=== PATIENT | female | born 1955 | race African-American/Black ===

== ENCOUNTER 2016-05-20 17:53 | Inpatient (IN) | END 2016-05-26 16:20 | disposition home or self-care (01) | DRG 690 | DX: N39.0 Urinary tract infection, site not specified (principal); B96.20 Unspecified Escherichia coli [E. coli] as the cause of diseases classified elsewhere; B96.4 Proteus (mirabilis) (morganii) as the cause of diseases classified elsewhere; E87.0 Hyperosmolality and hypernatremia; E87.8 Other disorders of electrolyte and fluid balance, not elsewhere classified; E87.1 Hypo-osmolality and hyponatremia; R13.10 Dysphagia, unspecified; Z93.1 Gastrostomy status; E86.0 Dehydration; D64.9 Anemia, unspecified; I10 Essential (primary) hypertension; E87.6 Hypokalemia; Z86.73 Personal history of transient ischemic attack (TIA), and cerebral infarction without residual deficits; F41.9 Anxiety disorder, unspecified; F32.9 Major depressive disorder, single episode, unspecified ==

== ENCOUNTER 2016-08-27 11:58 | Emergency (ER) | payer OTHER ==
[~2016-08-27] VITALS: Wt 77.0 kg
[~2016-08-27 11:58] MED LIST: AMLO-145 PO; ASPI-664 PO; CHLO25TA13 PO; DILT90TA PO; DIPY50TA PO; DOCU-216 PO; DULO60CA59 PO; FOLI-49 PO; GABA600T PO; TRAZ150T65 PO
--- NOTE | 2016-08-27 14:54 | RADRPT ---
PROCEDURE: XR right knee. CLINICAL INDICATION: Knee pain TECHNIQUE: AP, tunnel and lateral views are available for review. COMPARISON: None available FINDINGS: There is severe diffuse osteopenia. There is an acute comminuted transverse fracture involving the distal femur. No osseous lesions are identified. The joints are unremarkable. The soft tissues ar e unremarkable. There is a large joint effusion. There is extensive arterial vascular calcification. IMPRESSION: Diffuse osteopenia. Acute comminuted transverse fracture involving the distal femur Large joint effusion RPTAT: [facility] Case discussed with Ema Echeverria .Khoi Clark MD, MD Date Time Electronically viewed and signed by .Khoi Clark MD, on 08/27/2016 14:54 .B/
[2016-08-27] MEDS ORDERED: ACET500C5 PO (15:50)
[2016-08-27 15:57] VITALS: BP 122/65; PULSE 88; RESP 16; TEMP 98.2
--- NOTE | 2016-08-27 17:09 | ERD ---
ER Documentation Chief Complaint Date/Time DATE: 08/27/16 TIME: 17:00 Chief Complaint RIGHT KNEE PAIN S/P FALL FROM WHEELCHAIR, SWELLING NOTED HPI 61-year-old female patient with a past medical history of a previous stroke who has chronic right sided weakness, hypertension presents to the ED brought in by complaining of a right knee injury that occurred 2 weeks ago. He states that patient accidentally fell onto her right knee as she was trying to get out of her wheelchair. Patient's brought patient to follow-up with Dr. Lozoya and they ordered a right knee x-ray. Patient was referred to , orthopedic physician for further evaluation and treatment. Patient has been brought in films at this time but no official report. Denies any fever. Denies any head or neck injuries. Denies any loss of consciousness. Denies any seizures, headache nausea, vomiting. This was discussed with patient's . ROS All systems reviewed and are negative except as per history of present illness. Medications Home Meds Active Scripts Acetaminophen* (Tylophen*) 500 Mg Capsule, 1 CAP PO Q6H Y for PAIN AND OR ELEVATED TEMP, #20 CAP Prov:CLARA KUMAR PA-C 08/27/16 Docusate Sodium (Dok) 100 Mg Capsule, 100 MG PO Q12H Y for CONSTIPATION for 14 Days, #30 CAP Prov:KATERYNA DUARTE MD 05/26/16 Amlodipine Besylate* (Amlodipine Besylate*) 5 Mg Tablet, 5 MG PO BID for 28 Days , #30 TAB Prov:KATERYNA DUARTE MD 05/26/16 Reported Medications Chlorthalidone* (Chlorthalidone*) 25 Mg Tablet, 25 MG PO DAILY, TAB 05/20/16 Duloxetine Hcl* (Duloxetine Hcl*) 60 Mg Capsule., 60 MG PO DAILY, #30 CAP 05/20/16 Gabapentin* (Neurontin*) 600 Mg Tablet, 600 MG PO TID, TAB 01/21/15 Trazodone Hcl* (Trazodone Hcl*) 150 Mg Tablet, 300 MG PO BID, TAB 01/21/15 Folic Acid* (Folic Acid*) 1 Mg Tablet, 1 MG PO DAILY, TAB 01/21/15 Dipyridamole* (Dipyridamole*) 50 Mg Tablet, 50 MG PO BID, TAB 01/21/15 Diltiazem Hcl (Diltiazem Hcl) 90 Mg Tablet, 90 MG PO DAILY 01/21/15 Aspirin* (Aspirin* EC) 81 Mg Tablet.dr, 81 MG PO DAILY, TAB 01/21/15 Allergies Allergies: Coded Allergies: No Known Allergy (Unverified , 05/20/16) PMhx/Soc History of Surgery: Yes (colon resection, PEG placement) Anesthesia Reaction: No Hx Neurological Disorder: Yes (CVA (RT SIDE DEFICIT)) Hx Respiratory Disorders: No Hx Cardiac Disorders: Yes (HTN, hyperlipidemia) Hx Psychiatric Problems: No Hx Miscellaneous Medical Probl: No Hx Alcohol Use: No Hx Substance Use: No Hx Tobacco Use: No Physical Exam Vitals Vital Signs Date Time Temp Pulse Resp B/P Pulse Ox O2 Delivery O2 Flow Rate FiO2 08/27/16 15:57 98.2 88 16 122/65 98 Room Air 08/27/16 12:02 98.9 82 17 119/66 95 Physical Exam Const: [id number], well-nourished. In no acute distress. Head: Atraumatic, normocephalic Eyes: Normal Conjunctiva without injection ENT: Normal external ear, nose and mouth. Neck: Full range of motion. No meningismus. Resp: Clear to auscultation bilaterally. No wheezing, rhonchi, rales, or crackles. No accessory muscle use. No retractions. Cardio: Regular rate and rhythm, no murmurs Skin: No petechiae or rashes Back: No midline tenderness. No CVA tenderness. Ext: No cyanosis, or edema. Cap refill less than 2 seconds. Distal pulses intact bilaterally. Edema noted over the right superior patella. No erythema, warmth to touch. Neur: Awake and alert. Normal gait and coordination. Muscle strength 5/5. Sensation intact bilaterally. Psych: Normal Mood and Affect Procedures/MDM 61-year-old female patient with no significant past medical history presents to the ED complaining of a right knee injury that occurred 2 weeks ago. Patient is afebrile and nontoxic-appearing. Patient has normal vital signs. A right knee x-ray was ordered to further evaluate patient. PROCEDURE: XR right knee. CLINICAL INDICATION: Knee pain TECHNIQUE: AP, tunnel and lateral views are available for review. COMPARISON: None available FINDINGS: There is severe diffuse osteopenia. There is an acute comminuted transverse fracture involving the distal femur. No osseous lesions are identified. The joints are unremarkable. The soft tissues are unremarkable. There is a large joint effusion. There is extensive arterial vascular calcification. IMPRESSION: Diffuse osteopenia. Acute comminuted transverse fracture involving the distal femur Large joint effusion Patient is placed in a right knee immobilizer for her acute comminuted transverse fracture involving the distal femur. Patient has a wheelchair. Splint Assessment: Neurovascularly intact pre and post splint placement with good fit. Patient's extremity symptoms have stabilized while they have been evaluated in the department and are appropriate for outpatient follow up. No evidence of dislocations, compartment syndrome, neurologic injury, vascular injury, open joint, open fracture, tendon laceration, septic arthritis, osteomyelitis, DVT, foreign body, or other emergent conditions. This patient has been discussed with Dr. Platt who stated that patient can be managed on outpatient basis and be placed in a knee immobilization. This case was discussed with my supervising physician, Dr. Pearce who agreed with the management and discharge plan. Discharge medications: Tylenol Follow up with primary care physician in 1-2 days. Instructed patient to return to the ED sooner for any worsening symptoms. This was discussed with patient's whose questions were answered and agreed with the management and discharge plan. Patient discharged stable. Departure Diagnosis: Primary Impression: Femur fracture, right Encounter type: initial encounter Femur location: unspecified portion of femur Fracture alignment: nondisplaced Qualified Code: S72.91XA - Nondisplaced fracture of right femur, unspecified portion of femur, initial encounter Condition: Stable Patient Instructions: Fracture, Lower Extremity Referrals: [facility] YOU HAVE RECEIVED A MEDICAL SCREENING EXAM AND THE RESULTS INDICATE THAT YOU DO NOT HAVE A CONDITION THAT REQUIRES URGENT TREATMENT IN THE EMERGENCY DEPARTMENT. FURTHER EVALUATION AND TREATMENT OF YOUR CONDITION CAN WAIT UNTIL YOU ARE SEEN IN YOUR DOCTORS OFFICE WITHIN THE NEXT 1-2 DAYS. IT IS YOUR RESPONSIBILITY TO MAKE AN APPOINTMENT FOR FOLOW-UP CARE. IF YOU HAVE A PRIMARY DOCTOR --you should call your primary doctor and schedule an appointment IF YOU DO NOT HAVE A PRIMARY DOCTOR YOU CAN CALL OUR PHYSICIAN REFERRAL HOTLINE AT IF YOU CAN NOT AFFORD TO SEE A PHYSICIAN YOU CAN CHOSE FROM THE FOLLOWING [facility] [address] [facility]. [facility] [address] [facility]. [facility] [address] [facility] [address] [facility] [address] [facility]. [facility] [address] [facility]. [facility] YOU HAVE RECEIVED A MEDICAL SCREENING EXAM AND THE RESULTS INDICATE THAT YOU DO NOT HAVE A CONDITION THAT REQUIRES URGENT TREATMENT IN THE EMERGENCY DEPARTMENT. FURTHER EVALUATION AND TREATMENT OF YOUR CONDITION CAN WAIT UNTIL YOU ARE SEEN IN YOUR DOCTORS OFFICE WITHIN THE NEXT 1-2 DAYS. IT IS YOUR RESPONSIBILITY TO MAKE AN APPOINTMENT FOR FOLOW-UP CARE. IF YOU HAVE A PRIMARY DOCTOR --you should call your primary doctor and schedule and appointment IF YOU DO NOT HAVE A PRIMARY DOCTOR YOU CAN CALL OUR PHYSICIAN REFERRAL HOTLINE AT . IF YOU CAN NOT AFFORD TO SEE A PHYSICIAN YOU CAN CHOSE FROM THE FOLLOWING [facility] INSTITUTIONS: [facility] [address] [place] [address] [facility] [address] [place] [address] [facility] [address] [place] [address] [facility] 7 a.m.- 11 p.m. Every Day of the Week NO APPOINTMENT OR AUTHORIZATION NEEDED SO [facility] Hours: Mon-Fri 9:00 AM - 5:00 PM Additional Instructions: Call your primary care doctor TOMORROW for an appointment during the next 1-2 days. Your case has been discussed with Dr. Platt who states that you can follow- up with him at his clinic. Keep your appointment for September 04. [id number] [facility]. [address] [place] [address] See the doctor sooner or return here if your condition worsens before your appointment time. CLARA KUMAR PA-C August 27, 2016 17:09
== END 2016-08-27 15:58 | disposition home or self-care (01) ==
LOC: FTE 11:58
DX: S72.491A Other fracture of lower end of right femur, initial encounter for closed fracture (principal); I10 Essential (primary) hypertension; W05.0XXA Fall from non-moving wheelchair, initial encounter; Y92.9 Unspecified place or not applicable; Z79.82 Long term (current) use of aspirin
CPT/HCPCS: 73562